=== PATIENT | male | born 1970 | race Asian ===

== ENCOUNTER 2017-08-18 07:01 | Day surgery (SDC) | payer OTHER ==
[~2017-08-18] VITALS: Ht 165.1 cm; Wt 98.2 kg
[~2017-08-18 07:01] MED LIST: AMLO-512 PO; ARIP10TA8 PO; ASPI81 PO; ATEN100T PO; ATOR20TA86 PO; BENA20 PO; CITA20TA9 PO; FAMO20 PO; METF500T4 PO; MONT10TA21 PO
[2017-08-18] MEDS ORDERED: ALBUTEROL SULFATE 2.5 MG/0.5 ML NEB SOLUTION NEB ONE (07:02)
[2017-08-18] MEDS ORDERED: LIDOCAINE HCL 2% 30 ML JELLY TP ONE (07:02)
[2017-08-18] MEDS ORDERED: BENZOCAINE 20% 50 MCG/SPRAY 57 GM TP ONE (07:02)
[2017-08-18] MEDS ORDERED: LIDOCAINE HCL 4% 50 ML SOLUTION TP ONE (07:02)
[2017-08-18] MEDS ORDERED: SODIUM CHLORIDE 0.9% 1,000 ML IV ONE ×2 (07:12→07:30)
[2017-08-18 08:08] LABS: GLUCOMETER DEV NAME(LOC) SDS 5; GLUCOSE,POINT OF CARE 139 MG/DL (70-110)
[2017-08-18] MEDS ORDERED: MIDAZOLAM HCL 2 MG/2 ML VIAL ONE (08:14)
[2017-08-18] MEDS ORDERED: FentaNYL CITRATE-PF 100 MCG/2 ML VIAL ONE (08:15)
[2017-08-18] MEDS ORDERED: MethylPREDNISolone SOD SUCC 125 MG/2 ML VIAL IVP ONE (09:45)
[2017-08-18] MEDS ORDERED: MethylPREDNISolone SOD SUCC 125 MG/2 ML VIAL ONE (10:14)
[2017-08-18] MEDS ORDERED: OXYGEN THERAPY IH SCH (20:00)
== END 2017-08-18 10:55 | disposition home or self-care (01) ==
LOC: SURGERY 07:01
PROVIDERS: ATTEND Internal Medicine Critical Care Medicine
DX: J38.4 Edema of larynx (principal); B37.0 Candidal stomatitis; J84.111 Idiopathic interstitial pneumonia, not otherwise specified; F17.210 Nicotine dependence, cigarettes, uncomplicated; K21.9 Gastro-esophageal reflux disease without esophagitis; I10 Essential (primary) hypertension; E78.00 Pure hypercholesterolemia, unspecified; F31.9 Bipolar disorder, unspecified; Z79.82 Long term (current) use of aspirin; Z79.84 Long term (current) use of oral hypoglycemic drugs; Z72.89 Other problems related to lifestyle; Z90.89 Acquired absence of other organs; Z98.890 Other specified postprocedural states; Z88.0 Allergy status to penicillin; Z88.8 Allergy status to other drugs, medicaments and biological substances; Z91.018 Allergy to other foods
CPT/HCPCS: 31623; 31624; 71045; 82962; 87015; 87070; 87205; 87220; 88108; 88312; J2250; J2930; J3010; J7030